=== PATIENT | female | born 1955 | race Caucasian/White ===

== ENCOUNTER 2023-01-04 07:41 | Day surgery (SDC) | payer MEDICARE, BC ==
[2023-01-01 09:43] VITALS: BMI 28.4
[2023-01-04] MEDS ORDERED: EPINEPHrine 1 MG/ML AMP ONE ×2 (09:19→09:22)
[2023-01-04] MEDS ORDERED: Midazolam HCl 2 mg/2 ml Vial ONE (09:25)
[2023-01-04] MEDS ORDERED: PROPOFOL 20 ML ONE (09:25)
[2023-01-04] MEDS ORDERED: fentaNYL 50 mcg/mL 1 mL Vial ONE (09:25)
[2023-01-04] MEDS ORDERED: CEFAZOLIN 2 GM VIAL ONE (09:26)
[2023-01-04] MEDS ORDERED: Rocuronium Bromide 10 MG/ML (10ML VIAL) ONE (09:26)
[2023-01-04] MEDS ORDERED: Dexamethasone 20 MG/5 ML VIAL ONE (09:26)
[2023-01-04] MEDS ORDERED: oFLOXacin 0.3% Opth 5 ML BOT ONE (09:26)
[2023-01-04] MEDS ORDERED: Mupirocin 2% Ointment 22 GM Tube ONE (09:26)
[2023-01-04] MEDS ORDERED: Ondansetron PF 4 MG/2 ML Vial ONE ×2 (09:26)
[2023-01-04 09:28] LABS: Hemoglobin 12.9 g/dL (12.0-15.5)
[2023-01-04] MEDS ORDERED: Acetaminophen 500 MG TAB ONE (11:55)
== END 2023-01-04 13:25 | disposition home or self-care (01) ==
LOC: CSHSDC 07:41
PROVIDERS: ATTEND Otolaryngology Plastic Surgery within the Head & Neck
PROC: 09U70JZ Supplement Right Tympanic Membrane with Synthetic Substitute, Open Approach (ICD-10-PCS; principal; 2023-01-04)
DX: H72.91 Unspecified perforation of tympanic membrane, right ear (principal); H92.11 Otorrhea, right ear; J30.1 Allergic rhinitis due to pollen; Z90.49 Acquired absence of other specified parts of digestive tract; Z90.89 Acquired absence of other organs
CPT/HCPCS: 69631; 85018; C1713; C1781; J3010; 36415; J0171; J1100; J2250; J2405; J2704

== ENCOUNTER 2023-06-14 13:09 | Outpatient (CLI) | payer MEDICARE, BC | END 2023-06-14 13:10 | disposition home or self-care (01) | LOC: CSHMAMMO 13:09 | PROVIDERS: ATTEND Family Medicine | DX: Z12.31 Encounter for screening mammogram for malignant neoplasm of breast (principal) | CPT/HCPCS: 77063; 77067 ==

== ENCOUNTER 2024-03-23 07:58 | Outpatient (CLI) | payer MEDICARE, BC ==
[2024-03-23 09:03] LABS: Hematocrit 40.7 % (34.9-44.5); Hemoglobin 13.1 g/dL (12.0-15.5)
[2024-03-23 09:19] LABS: Anion Gap 13 mmol/L (10-20); BUN (Urea Nitrogen) 16 mg/dL (9.8-20.1); Calc. Creatinine Clearance 0 mL/min (70-130); Calcium 9.3 mg/dL (7.8-10.44); Carbon Dioxide 23 mmol/L (23-31); Chloride 109 mmol/L (98-107); Estimated GFR 88; Glucose 92 mg/dL (80-115); Sodium 141 mmol/L (136-145)
== END 2024-03-23 07:59 | disposition home or self-care (01) ==
LOC: CSHLAB 07:58
PROVIDERS: ATTEND Otolaryngology Plastic Surgery within the Head & Neck
DX: Z01.818 Encounter for other preprocedural examination (principal); H72.91 Unspecified perforation of tympanic membrane, right ear; H92.11 Otorrhea, right ear
CPT/HCPCS: 80048; 85014; 85018; 93005; 93010

== ENCOUNTER 2024-03-30 06:59 | Day surgery (SDC) | payer MEDICARE, BC ==
[2024-03-23 08:31] VITALS: BMI 29.8
[2024-03-30] MEDS ORDERED: Midazolam HCl 2 mg/2 ml Vial ONE (08:39)
[2024-03-30] MEDS ORDERED: Scopolamine 1 mg/72 hour Patch ONE (08:39)
[2024-03-30] MEDS ORDERED: Rocuronium Bromide 10 MG/ML (10ML VIAL) ONE (09:35)
[2024-03-30] MEDS ORDERED: Dexamethasone 20 MG/5 ML VIAL ONE (09:35)
[2024-03-30] MEDS ORDERED: Lidocaine 1% PF 5 ML VIAL ONE (09:35)
[2024-03-30] MEDS ORDERED: Dexmedetomidine 200 MCG/2 ML VIAL ONE (09:35)
[2024-03-30] MEDS ORDERED: SUGAMMADEX SODIUM 200 MG/2 ML VIAL ONE (09:35)
[2024-03-30] MEDS ORDERED: fentaNYL 50 mcg/mL 1 mL Vial ONE ×4 (09:36→12:44)
[2024-03-30] MEDS ORDERED: PROPOFOL 20 ML ONE ×2 (09:36→10:48)
[2024-03-30] MEDS ORDERED: Sodium Chloride 0.9% 10 ML ONE (09:45)
[2024-03-30] MEDS ORDERED: EPINEPHrine 1 MG/ML VIAL ONE (09:45)
[2024-03-30] MEDS ORDERED: oFLOXacin 0.3% Opth 5 ML BOT ONE (09:45)
[2024-03-30] MEDS ORDERED: CEFAZOLIN 2 GM VIAL ONE (09:59)
[2024-03-30] MEDS ORDERED: PHENYLEPHRINE-NS 100 MCG/ML 10 ML SYRINGE ONE (10:21)
[2024-03-30] MEDS ORDERED: Mupirocin 2% Ointment 22 GM Tube ONE (11:02)
[2024-03-30] MEDS ORDERED: Ondansetron PF 4 MG/2 ML Vial ONE (12:24)
[2024-03-30] MEDS ORDERED: HYDROcodone/Acetaminophen 5/325 mg Tablet ONE (13:35)
== END 2024-03-30 14:30 | disposition home or self-care (01) ==
LOC: CSHSDC 06:59
PROVIDERS: ATTEND Otolaryngology Plastic Surgery within the Head & Neck
PROC: 0NB Head and Facial Bones, Excision (ICD-10-PCS; principal; 2024-03-30)
DX: H65.193 Other acute nonsuppurative otitis media, bilateral (principal); H72.91 Unspecified perforation of tympanic membrane, right ear; Z88.8 Allergy status to other drugs, medicaments and biological substances; Z88.1 Allergy status to other antibiotic agents; Z98.890 Other specified postprocedural states; Z79.899 Other long term (current) drug therapy; Z90.49 Acquired absence of other specified parts of digestive tract
CPT/HCPCS: 69643; C1713; J0171; J1100; J2250; J2405; J2704; J3010

== ENCOUNTER 2024-06-15 13:00 | Outpatient (CLI) | payer MEDICARE, BC | END 2024-06-15 13:01 | disposition home or self-care (01) | LOC: CSHCT 13:00 | PROVIDERS: ATTEND Otolaryngology Plastic Surgery within the Head & Neck | DX: R05.3 Chronic cough (principal) | CPT/HCPCS: 71250 ==